=== PATIENT | male | born 1975 ===

== ENCOUNTER 2019-10-23 08:25 | Outpatient (CLI) | payer OTHER, SELFPAY ==
[2019-10-23 08:59] LABS: Basophils Absolute Auto 0.1 K/mm3 (0.0-0.1); Basophils Percent Auto 1.3 % (0.2-1.2); Eosinophils Absolute Auto 0.3 K/mm3 (0-0.3); Eosinophils Percent Auto 3.4 % (0-4.4); Hematocrit 42.5 % (42.0-52.0); Hemoglobin 14.7 g/dL (14.0-18.0); Immature Granulocyte Absolute 0.08 K/mm3 (0.00-0.031); Lymphocytes Absolute Auto 2.39 K/mm3 (0.9-3.2); Lymphocytes Percent Auto 28.8 % (18.3-44.2); Mean Corpuscular HGB Conc 34.6 g/dl (32-36); Mean Corpuscular Hemoglobin 27.2 pg (26-34); Mean Corpuscular Volume 78.7 fl (80-100); Mean Platelet Volume 10.5 fl (7.4-10.4); Monocytes Absolute Auto 0.7 K/mm3 (0.1-0.6); Monocytes Percent Auto 8.7 % (2.6-8.5); Neutrophils Absolute Auto 4.7 K/mm3 (1.3-6.7); Neutrophils Percent Auto 56.8 % (45.5-73.1); Platelet Count Result 236 k/mm3 (150-375); Red Cell Distribution Width 13.4 % (11.5-14.5); White Blood Count 8.3 K/mm3 (4.5-10.0)
[2019-10-23 09:05] LABS: Alanine Aminotransferase 65 U/L (4-50); Albumin Level 4.6 g/dL (3.5-5.1); Alkaline Phosphatase 112 U/L (38-126); Anion Gap 6 mmol/L (8-16); Aspartate Amino Transferase 46 U/L (17-59); Bilirubin,Total 0.7 mg/dL (0.2-1.3); Blood Urea Nitrogen 15 mg/dL (9-20); Calcium 9.9 mg/dL (8.4-10.2); Carbon Dioxide 31 mmol/L (22-30); Chloride 99 mmol/L (98-107); Cholesterol 176 mg/dL (0-200); Estimated Glomerular Filt Rate > 60; Glucose 206 mg/dL (75-110); HDL Direct 49 mg/dL; Potassium 4.8 mmol/L (3.4-5.0); Sodium 136 mmol/L (137-145); Triglycerides 209 mg/dL (<150)
[2019-10-23 09:21] LABS: LDL Cholesterol Direct 68 mg/dL
== END 2019-10-23 08:26 | disposition home or self-care (01) ==
LOC: ANHLAB 08:29
PROVIDERS: PCP Family Medicine; Visit Provider Physician Assistant
DX: R53.83 Other fatigue (principal); R10.9 Unspecified abdominal pain; E88.81 Metabolic syndrome and other insulin resistance; I10 Essential (primary) hypertension
CPT/HCPCS: 36415; 80053; 80061; 84443; 85025

== ENCOUNTER 2020-01-21 16:03 | Outpatient (CLI) | payer OTHER, SELFPAY ==
[2020-01-21 16:36] LABS: Alanine Aminotransferase 62 U/L (4-50); Albumin Level 4.4 g/dL (3.5-5.1); Alkaline Phosphatase 99 U/L (38-126); Anion Gap 9 mmol/L (8-16); Aspartate Amino Transferase 40 U/L (17-59); Bilirubin,Total 0.7 mg/dL (0.2-1.3); Blood Urea Nitrogen 19 mg/dL (9-20); Calcium 9.7 mg/dL (8.4-10.2); Carbon Dioxide 31 mmol/L (22-30); Chloride 96 mmol/L (98-107); Estimated Glomerular Filt Rate > 60; Glucose 192 mg/dL (75-110); Potassium 4.3 mmol/L (3.4-5.0); Sodium 136 mmol/L (137-145)
[2020-01-21 17:07] LABS: MALB Creatinine Ratio < 12.0 mg/g (0-30); Microalbumin Urine Random < 6.0 mg/L (0-16.7)
== END 2020-01-21 16:04 | disposition home or self-care (01) ==
LOC: ANHLAB 16:04
PROVIDERS: Internal Medicine Endocrinology, Diabetes & Metabolism; PCP Family Medicine; Visit Provider Physician Assistant
DX: E10.65 Type 1 diabetes mellitus with hyperglycemia (principal); R79.89 Other specified abnormal findings of blood chemistry
CPT/HCPCS: 36415; 80053; 82043

== ENCOUNTER 2020-08-07 09:47 | Outpatient (CLI) | payer OTHER, SELFPAY ==
--- NOTE | ~2020-08-07 | CT_ITS ---
EXAMINATION: CT brain wo con DATE: 08/07/2020 10:14 INDICATION: Headache TECHNIQUE: Computed tomography (CT) of the head was performed without intravenous contrast. Sagittal and coronal reconstructions were performed. The mA was adjusted according to patient size. Iterative reconstruction technique was employed. The dose-length product was 605.33 mGy-cm. COMPARISON: None FINDINGS: No acute intracranial hemorrhage, acute infarction or abnormal extra axial fluid collection. Small re gion of decreased attenuation at the right frontal lobe periventricular white matter. Ventricles are normal and symmetric. No mass/mass effect. The orbits and mastoid air cells are normal. Mild mucosal thickening in the left ethmoid sinus. IMPRESSION: 1. Small region of nonspecific decreased attenuation in the right frontal lobe periventricular white matter with differential including small age indeterminate lacunar infarct, premature white matter sm all vessel ischemic disease or sequela of reported prior brain hemorrhage. Reviewed, dictated and finalized at location A. IMPRESSION: 1. Small region of nonspecific decreased attenuation in the right frontal lobe periventricular white matter with differential including small age indeterminat e lacunar infarct, premature white matter small vessel ischemic disease or sequ reymundo of reported prior brain hemorrhage.
== END 2020-08-07 09:48 | disposition home or self-care (01) ==
PROVIDERS: PCP Family Medicine; Visit Provider Physician Assistant
DX: R51.9 Headache, unspecified (principal); Z86.79 Personal history of other diseases of the circulatory system; R93.0 Abnormal findings on diagnostic imaging of skull and head, not elsewhere classified
CPT/HCPCS: 70450

== ENCOUNTER 2021-04-06 07:46 | Outpatient (CLI) | payer OTHER, SELFPAY ==
[2021-04-06 08:30] LABS: Basophils Absolute Auto 0.1 K/mm3 (0.0-0.1); Basophils Percent Auto 1.7 % (0.2-1.2); Eosinophils Absolute Auto 0.2 K/mm3 (0-0.3); Eosinophils Percent Auto 2.8 % (0-4.4); Hematocrit 45.5 % (42.0-52.0); Hemoglobin 15.3 g/dL (14.0-18.0); Immature Granulocyte Absolute 0.07 K/mm3 (0.00-0.031); Immature Granulocyte Percent A 0.8 % (0-0.5); Lymphocytes Absolute Auto 2.27 K/mm3 (0.9-3.2); Lymphocytes Percent Auto 26.9 % (18.3-44.2); Mean Corpuscular HGB Conc 33.6 g/dl (32-36); Mean Corpuscular Hemoglobin 26.9 pg (26-34); Mean Platelet Volume 10.2 fl (7.4-10.4); Monocytes Absolute Auto 0.8 K/mm3 (0.1-0.6); Neutrophils Percent Auto 58.8 % (45.5-73.1); Platelet Count Result 251 k/mm3 (150-375); Red Blood Count 5.69 M/mm3 (4.6-6.20); Red Cell Distribution Width 13.4 % (11.5-14.5); White Blood Count 8.4 K/mm3 (4.5-10.0)
[2021-04-06 08:41] LABS: Hemoglobin A1C 8.1 % (<5.7)
[2021-04-06 08:45] LABS: Alanine Aminotransferase 70 U/L (4-50); Albumin Level 4.7 g/dL (3.5-5.1); Alkaline Phosphatase 126 U/L (38-126); Anion Gap 10 mmol/L (8-16); Aspartate Amino Transferase 51 U/L (17-59); Bilirubin,Total 0.7 mg/dL (0.2-1.3); Blood Urea Nitrogen 16 mg/dL (9-20); Calcium 9.4 mg/dL (8.4-10.2); Carbon Dioxide 30 mmol/L (22-30); Chloride 102 mmol/L (98-107); Cholesterol 178 mg/dL (0-200); Estimated Glomerular Filt Rate > 60; Glucose 190 mg/dL (65-110); HDL Direct 53 mg/dL; Potassium 4.4 mmol/L (3.4-5.0); Sodium 142 mmol/L (137-145); Triglycerides 203 mg/dL (<150)
[2021-04-06 08:51] LABS: Add Urine Microscopic? NO; Appearance Urine Clear (Clear); Bilirubin Urine Negative (Negative); Blood Urine Negative (Negative); Color Urine Straw (Yellow); Glucose Urine UA Negative (Negative); Ketones Urine Negative (Negative); Leukocyte Esterase Ur Negative LEU/UL (NEGATIVE); Nitrate Urine Negative (Negative); Protein Urine Negative (Negative); Specific Grav Ur 1.014 (1.001-1.035); Urobilinogen Urine Negative mg/dL (<2.0)
[2021-04-06 08:56] LABS: LDL Cholesterol Direct 57 mg/dL
[2021-04-06 09:26] LABS: Creatinine Urine 75.9 mg/dL
[2021-04-06 09:28] LABS: Microalbumin Urine Random 11.4 mg/L (0-16.7)
[2021-04-06 10:00] LABS: Prostate Specific Antigen 0.4 ng/mL (< OR = 4.0)
[2021-04-10 23:05] LABS: Testosterone Total 254 ng/dL (250-1100)
== END 2021-04-06 07:47 | disposition home or self-care (01) ==
LOC: ANHLAB 07:50
PROVIDERS: PCP Family Medicine; Visit Provider Physician Assistant
DX: Z00.00 Encounter for general adult medical examination without abnormal findings (principal); E78.5 Hyperlipidemia, unspecified; E10.65 Type 1 diabetes mellitus with hyperglycemia; E88.81 Metabolic syndrome and other insulin resistance; F90.9 Attention-deficit hyperactivity disorder, unspecified type; G47.33 Obstructive sleep apnea (adult) (pediatric); I10 Essential (primary) hypertension; R53.83 Other fatigue; R63.5 Abnormal weight gain
CPT/HCPCS: 36415; 80053; 80061; 81003; 82043; 82607; 82746; 83036; 84153; 84403; 84443; 85025

== ENCOUNTER 2021-08-20 02:08 | Day surgery (SDC) | payer OTHER, SELFPAY ==
[2021-08-01 13:37] VITALS: BMI 42.3
[2021-08-20 06:17] LABS: Glucose Point of Care 201 mg/dl (65-105)
[2021-08-20 06:18] VITALS: BP 128/91; PULSE 89; RESP 18; TEMP 36; O2SAT 98
[2021-08-20] MEDS: LACTATED RINGERS 1,000 ML 150 ML IV CONT (06:23)
--- NOTE | 2021-08-20 06:47 | WPDANESEPPF ---
Anes - Initial Pre Proc Eval Procedure: Operation Date: 08/20/21 07:30 Proposed Procedures p Screening Colonoscopy - Dale Campbell MD Date/Time: 08/20/21 06:47 Surgeon: Dale Campbell MD Pre Op Diagnosis: neoplasm screening Patient Data Age: 46 Gender: M Height: 1.75 m Weight: 128.3 kg Last Vital Signs Temp 36.0 C L 08/20/21 06:18 Pulse 89 08/20/21 06:18 Resp 18 08/20/21 06:18 BP 128/91 H 08/20/21 06:18 Pulse Ox 98 08/20/21 06:18 O2 Del Method Room Air 08/20/21 06:18 Allergies Allergy/AdvReac Type Severity Reaction Status Date / Time No Known Allergies Allergy Verified 08/20/21 06:16 Home Medications Medication Instructions Recorded Confirmed Type insulin syringe-needle U-100 1 mL #400 ea 09/07/19 04/20/21 Rx 29 gauge x 1/2 (Insulin Syringe) blood sugar diagnostic (OneTouch #400 ea 05/08/20 04/20/21 Rx Ultra Blue Test Strip) pen needle, diabetic 32 gauge x #20 ea 07/17/20 04/20/21 Rx 5/32 (BD Ultra-Fine Khloe Pen Needle) amlodipine 10 mg tablet 10 mg PO DAILY #90 tabs 03/20/21 08/20/21 Rx esomeprazole magnesium 40 mg 40 mg PO DAILY #90 caps 03/20/21 08/20/21 Rx capsule,delayed release (Nexium) lisinopril 40 mg tablet 40 mg PO DAILY #90 tabs 03/20/21 08/20/21 Rx pravastatin 10 mg tablet 10 mg PO DAILY #90 tabs 03/20/21 08/20/21 Rx blood sugar diagnostic (Contour #400 ea 05/25/21 Rx Next Test Strips) insulin degludec 100 unit/mL (3 45 unit (0.45 mL) subcut DAILY 90 05/25/21 08/20/21 Rx mL) subcutaneous pen (Tresiba days #42 mL FlexTouch U-100 insulin) armodafinil 150 mg tablet 150 mg PO QAM #90 tabs 06/13/21 08/20/21 Rx insulin lispro 100 unit/mL See Rx Instructions .Route 07/06/21 08/20/21 Rx subcutaneous solution (Humalog .COMPLEX #60 mL U-100 Insulin) hydrochlorothiazide 25 mg tablet 25 mg PO DAILY #90 tabs 07/12/21 08/20/21 Rx Laboratory Tests 08/20/21 06:12 POC Capillary Glucose 201 mg/dl H mg/dl (65-105) Patient hx anesthesia problems: none Family hx anesthesia problems: none Results Review: All pre-operative results and documents have been reviewed as part of the pre-operative evaluation. [facility] Past Medical History Medical History (Updated 08/20/21 @ 06:47 by Yannick Mcbride DO) Brain bleed Depression Diabetes type 2, controlled Erectile dysfunction Hypertension JAYLEN (obstructive sleep apnea) Surgical History Surgical History History of appendectomy Hx of tonsillectomy Family History Family History Mother Hypertension Family history of arthritis Father Hypertension Other Family history of obesity Social History Social History Social History: Smoking packs per day: 0.5 Smoking cigarettes per day: 10.0 Years smoked: 5 Smoking pack-years: 2.50 Smoking status: Former smoker Tobacco type: cigarettes Second hand tobacco smoke exposure: No Smoking end date: 02/10/98 Alcohol intake: never Alcohol use details: Occasionally Substance use: never Substance use type: does not use Living arrangements: with family Additional occupation/education comments: work in [employer] work Gender identity (if verbalized by the patient): Male Sexual Orientation (if Verbalized by the Patient): Straight or Heterosexual Spiritual care concerns: No Anes - Eval Final PreProcedure Day of Procedure 08/20/21 06:47 Patient weight: morbidly obese Heart: regular rate and rhythm Lungs: clear to auscultation Airway: Mallampati scale class II Neurological: alert and oriented Last oral intake: >/= 8 hours ASA classification: III Emergent: no Anesthetic plan: proceed Anesthesia type and monitoring: general GIVS and standard monitoring Results Review: All pre-operativ
--- NOTE | 2021-08-20 07:29 | PM.HPGS ---
History of Present Illness History of Present Illness Consent: Risks, benefits, and alternatives have been discussed and questions answered. Patient agrees to proceed with procedure. Chief complaint: neoplasm screening Narrative: Kenneth Caballero is a 46 year old male here for first screening colonoscopy Review of Systems Constitutional: Constitutional: Denies headache(s) and Denies weakness Eyes: Eyes: Denies blurry vision ENT: Reports Normal hearing present, Denies headache(s) and Denies neck pain Cardiovascular: Cardiovascular: Denies chest pain and Denies dyspnea Respiratory: Respiratory: Denies dyspnea Gastrointestinal: Gastrointestinal: Reports no additional gastrointestinal complaints Genitourinary: Genitourinary: Denies dysuria Musculoskeletal: Musculoskeletal: Denies neck pain Integumentary/Breasts: Skin/Breast: Denies dry skin Neurologic: Reports Normal hearing present, Denies headache(s) and Denies weakness Psychiatric: Psychiatric: Denies anxiety Endocrine: Endocrine: Denies change in body appearance Hematologic/Lymphatic: Hematologic/Lymphatic: Denies easy bleeding Allergic/Immunologic: Allergic/Immunologic: Denies urticaria PMF Past Medical History Medical History (Updated 08/20/21 @ 07:30 by Dale Campbell MD) Brain bleed Colon cancer screening Depression Diabetes type 2, controlled Erectile dysfunction Hypertension JAYLEN (obstructive sleep apnea) Surgical History Surgical History History of appendectomy Hx of tonsillectomy Family History Family History Mother Hypertension Family history of arthritis Father Hypertension Other Family history of obesity Social History Social History Social History: Smoking packs per day: 0.5 Smoking cigarettes per day: 10.0 Years smoked: 5 Smoking pack-years: 2.50 Smoking status: Former smoker Tobacco type: cigarettes Second hand tobacco smoke exposure: No Smoking end date: 02/10/98 Alcohol intake: never Alcohol use details: Occasionally Substance use: never Substance use type: does not use Living arrangements: with family Additional occupation/education comments: work in [employer] work Gender identity (if verbalized by the patient): Male Sexual Orientation (if Verbalized by the Patient): Straight or Heterosexual Spiritual care concerns: No Meds Home Medications and Allergies Home Medications Medication Instructions Recorded Confirmed Type insulin syringe-needle U-100 1 mL #400 ea 09/07/19 04/20/21 Rx 29 gauge x 1/2 (Insulin Syringe) blood sugar diagnostic (OneTouch #400 ea 05/08/20 04/20/21 Rx Ultra Blue Test Strip) pen needle, diabetic 32 gauge x #20 ea 07/17/20 04/20/21 Rx 5/32 (BD Ultra-Fine Khloe Pen Needle) amlodipine 10 mg tablet 10 mg PO DAILY #90 tabs 03/20/21 08/20/21 Rx esomeprazole magnesium 40 mg 40 mg PO DAILY #90 caps 03/20/21 08/20/21 Rx capsule,delayed release (Nexium) lisinopril 40 mg tablet 40 mg PO DAILY #90 tabs 03/20/21 08/20/21 Rx pravastatin 10 mg tablet 10 mg PO DAILY #90 tabs 03/20/21 08/20/21 Rx blood sugar diagnostic (Contour #400 ea 05/25/21 Rx Next Test Strips) insulin degludec 100 unit/mL (3 45 unit (0.45 mL) subcut DAILY 90 05/25/21 08/20/21 Rx mL) subcutaneous pen (Tresi #42 mL FlexTouch U-100 insulin) armodafinil 150 mg tablet 150 mg PO QAM #90 tabs 06/13/21 08/20/21 Rx insulin lispro 100 unit/mL See Rx Instructions .Route 07/06/21 08/20/21 Rx subcutaneous solution (Humalog .COMPLEX #60 mL U-100 Insulin) hydrochlorothiazide 25 mg tablet 25 mg PO DAILY #90 tabs 07/12/21 08/20/21 Rx Allergies Allergy/AdvReac Type Severity Reaction Status Date / Time No Known Allergies Allergy Verified 08/20/21 06:16 Vital Sign
[2021-08-20 07:46] VITALS: BP 118/74; PULSE 82; RESP 18; O2SAT 98
[2021-08-20 07:52] LABS: Glucose Point of Care 225 mg/dl (65-105)
[2021-08-20 07:56] VITALS: BP 121/76; PULSE 72; RESP 18; O2SAT 99
[2021-08-20 08:06] VITALS: BP 122/74; PULSE 76; RESP 18; O2SAT 98
== END 2021-08-20 08:11 | disposition home or self-care (01) ==
PROVIDERS: PCP Family Medicine; Visit Provider Internal Medicine Gastroenterology
PROC: 0DJD8ZZ Inspection of Lower Intestinal Tract, Via Natural or Artificial Opening Endoscopic (ICD-10-PCS; CPT 45378; principal; 2021-08-20 07:30)
DX: Z12.11 Encounter for screening for malignant neoplasm of colon (principal); K63.5 Polyp of colon; E11.9 Type 2 diabetes mellitus without complications; I10 Essential (primary) hypertension; G47.33 Obstructive sleep apnea (adult) (pediatric); F32.A Depression, unspecified; Z87.891 Personal history of nicotine dependence; E66.01 Morbid (severe) obesity due to excess calories; Z68.41 Body mass index [BMI] 40.0-44.9, adult; Z79.4 Long term (current) use of insulin
CPT/HCPCS: 45385; 82948; 88305; J2704; J7120

== ENCOUNTER 2022-01-29 10:15 | Outpatient (CLI) | payer OTHER, SELFPAY ==
--- NOTE | ~2022-01-29 | XR_ITS ---
EXAMINATION: XR chest 2V DATE: 01/29/2022 10:30 INDICATION: Palpitations. TECHNIQUE: Frontal and lateral views of the chest were obtained. COMPARISON: None. FINDINGS: The chest demonstrates clear lungs without pneumonia, pleural effusion, or pneumothorax. Th e heart size is normal. IMPRESSION: 1. No acute cardiopulmonary disease. Reviewed, dictated and finalized at location A. ING PROCESS TECHNICIAN
== END 2022-01-29 10:16 | disposition home or self-care (01) ==
PROVIDERS: PCP Family Medicine; Visit Provider Physician Assistant
DX: R00.2 Palpitations (principal)
CPT/HCPCS: 71046

== ENCOUNTER 2023-04-05 07:36 | Outpatient (CLI) | payer OTHER, SELFPAY ==
[2023-04-05 08:14] LABS: Alanine Aminotransferase 49 U/L (6-50); Albumin Level 4.1 g/dL (3.5-5.1); Alkaline Phosphatase 115 U/L (38-126); Anion Gap 8 mmol/L (8-16); Aspartate Amino Transferase 37 U/L (17-59); Bilirubin,Total 0.9 mg/dL (0.2-1.3); Blood Urea Nitrogen 20 mg/dL (9-20); Calcium 9.4 mg/dL (8.4-10.2); Carbon Dioxide 27 mmol/L (22-30); Chloride 99 mmol/L (98-107); Cholesterol 155 mg/dL (0-200); Estimated Glomerular Filt Rate > 60; Glucose 176 mg/dL (65-110); HDL Direct 46 mg/dL; Potassium 3.6 mmol/L (3.4-5.0); Sodium 134 mmol/L (137-145); Triglycerides 234 mg/dL (<150)
[2023-04-05 08:25] LABS: LDL Cholesterol Direct 67 mg/dL
[2023-04-05 08:32] LABS: Creatinine Urine 211.5 mg/dL
[2023-04-05 08:36] LABS: MALB Creatinine Ratio 4.6 mg/g (0-30); Microalbumin Urine Random 9.8 mg/L (0-16.7)
[2023-04-10 19:02] LABS: Testosterone Free 50.1 pg/mL (35.0-155.0); Testosterone Total 247 ng/dL (250-1100)
== END 2023-04-05 07:37 | disposition home or self-care (01) ==
LOC: ANHLAB 07:42
PROVIDERS: PCP Family Medicine; Visit Provider Internal Medicine Endocrinology, Diabetes & Metabolism
DX: E10.65 Type 1 diabetes mellitus with hyperglycemia (principal); E78.5 Hyperlipidemia, unspecified; Z71.3 Dietary counseling and surveillance; E88.810 Metabolic syndrome
CPT/HCPCS: 36415; 80053; 80061; 82043; 82607; 84402; 84403; 84443